=== PATIENT | male | born 1950 | race Caucasian/White ===

== ENCOUNTER 2017-07-03 10:36 | Day surgery (SDC) | payer MEDICARE, OTHER ==
[2017-06-30 14:27] VITALS: BMI 33.0
[~2017-07-03 10:36] MED LIST: LACTATED RINGERS 1,000 ML IV SCH; LIDOCAINE 1% 20 ML VIAL (10MG/ML) FOR IV START INTRADERMA PRN
[2017-07-03 10:53] VITALS: RESP 18; TEMP 97.9
[2017-07-03] MEDS ORDERED: PROPOFOL 10 MG/ML 20 ML VIAL IV ONE (11:48)
--- NOTE | 2017-07-03 12:09 | P.PCN ---
Date of Procedure: 07/03/17 Preoperative Diagnosis: Postoperative Diagnosis: Procedure(s) Performed: Procedure: Total colonoscopy. Preoperative diagnosis: Screening for neoplasia. Postoperative diagnosis: Mild sigmoid diverticulosis with no evidence of acute diverticulitis, strictures, polyps or cancer. Preparation: HalfLytely prep. Sedation: Was provided by anesthesia. Brief clinical history: The patient is a 67-year-old male who is referred for this evaluation for screening for neoplasia. He had a prior exam more than 10 years ago. The patient has no abdominal complaints, bleeding or anemia. Procedure: With the patient on his left lateral decubitus position and after informed consent and adequate sedation, the perianal area was inspected and it did not show any fissures or fistulas. There were no masses felt on digital rectal examination. The Olympus CFQ 160L video colonoscope was then inserted in the rectum in the usual fashion and advanced to the cecum. There was very few small diverticular orifices seen scattered in the distal sigmoid with no evidence of acute diverticulitis or strictures. No polyps or tumors were seen or any other pathology. I retroflexed the endoscope in the rectum before the endoscope was withdrawn. The patient tolerated the procedure well. Plan: The patient was reassured. Discussed dietary measures. He will follow up with you as planned and I recommended repeat exam in 10 years. Implants: Indications for Procedure: Operative Findings: Description of Procedure:
[2017-07-03 12:40] VITALS: BP 142/83; PULSE 69
== END 2017-07-03 12:56 | disposition home or self-care (01) ==
LOC: ORWHC2ENDO 10:36
DX: Z12.11 Encounter for screening for malignant neoplasm of colon (principal); K57.30 Diverticulosis of large intestine without perforation or abscess without bleeding; I10 Essential (primary) hypertension; Z79.82 Long term (current) use of aspirin; Z79.1 Long term (current) use of non-steroidal anti-inflammatories (NSAID); Z79.899 Other long term (current) drug therapy
CPT/HCPCS: J2704; G0121

== ENCOUNTER → 2018-05-01 | Outpatient (CLI) | payer MEDICARE, OTHER | END | disposition home or self-care (01) | LOC: LABPAT 12:42 | PROVIDERS: ATTEND Orthopaedic Surgery | DX: Z01.812 Encounter for preprocedural laboratory examination (principal); M16.12 Unilateral primary osteoarthritis, left hip | CPT/HCPCS: 87070 ==

== ENCOUNTER 2018-05-11 05:43 | Inpatient (IN) | payer MEDICARE, OTHER ==
[2018-04-29 11:11] VITALS: BMI 33.0
--- NOTE | 2018-05-10 12:25 | HP ---
HISTORY AND PHYSICAL REASON FOR ADMISSION: Surgery scheduled for 05/11/2018 HISTORY OF PRESENT ILLNESS: Nate Kaiser is a 67-year-old patient seen with symptomatic left hip osteoarthritis. Treatment options were discussed. He elected to proceed with left total hip arthroplasty. Consent was obtained, clearance was provided by Dr. Manan Alcala. PAST MEDICAL HISTORY: Hypertension. PAST SURGICAL HISTORY: Left knee arthroscopy. MEDICATIONS: Tenormin, Baclofen, Plendil. ALLERGIES: None reported. SOCIAL HISTORY: The patient denies current tobacco use. PHYSICAL EXAMINATION: Evaluation of the left hip, there is a generalized diffuse tenderness. There is very limited range of motion of the hips with severe pain. There is a positive hip impingement sign. Straight leg raise is negative. His distal neurovascular exam is intact. RADIOGRAPHS: Radiographs of the left hip reveal severe osteoarthritic changes. IMPRESSION: 1. Left hip osteoarthritis. 2. Hypertension. PLAN: Direct anterior approach left total hip arthroplasty. Surgery scheduled for 05/11/2018. MMODL / IJN: [id number] /
[~2018-05-11 05:43] MED LIST changes: +ACETAMINOPHEN TAB 500 MG TAB PO ONE; +DEXAMETHASONE SOD PHOSPHATE 10 MG/ML 1 ML VIAL IV ONE; -LACTATED RINGERS 1,000 ML IV SCH; -LIDOCAINE 1% 20 ML VIAL (10MG/ML) FOR IV START INTRADERMA PRN; +MELOXICAM 7.5 MG TAB PO ONE; +MIDAZOLAM 2 MG/2 ML VIAL IV PRN; +ONDANSETRON 4 MG/2 ML VIAL IVP ONE; +TRANEXAMIC ACID 1,000 MG in SODIUM CHLORIDE 0.9% 50 ML IVPB ONE; +ceFAZolin IN SWFI 2 GM/20 ML SYRINGE IVP ONE; +fentaNYL (PF) 50 MCG/ML 2 ML AMP IV PRN
[2018-05-11] MEDS ORDERED: LIDOCAINE 1% 20 ML VIAL (10MG/ML) FOR IV START INTRADERMA ONE (06:49)
[2018-05-11] MEDS: LACTATED RINGERS 1,000 ML IV SCH ×3 (06:53→20:42)
[2018-05-11] MEDS ORDERED: TRANEXAMIC ACID 1,000 MG/10 ML VIAL ONE (06:58)
[2018-05-11] MEDS ORDERED: MIDAZOLAM 2 MG/2 ML VIAL ONE (06:58)
[2018-05-11] MEDS ORDERED: ePHEDrine SULFATE/0.9% NACL/PF 50 MG/5 ML SYRINGE IV ONE (06:58)
[2018-05-11] MEDS ORDERED: fentaNYL (PF) 50 MCG/ML 2 ML AMP ONE (06:58)
[2018-05-11] MEDS ORDERED: SODIUM CHLORIDE 0.9% 100 ML BAG ONE (06:58)
[2018-05-11] MEDS ORDERED: ROPIVACAINE 246.25 MG, EPINEPHrine 0.5 MG, KETOROLAC 30 MG, cloNIDine HCL/PF 80 MCG, WA... MISCELLANE ONE ×5 (06:58)
[2018-05-11] MEDS ORDERED: PROPOFOL 10 MG/ML 20 ML VIAL IV ONE (06:58)
[2018-05-11] MEDS ORDERED: ceFAZolin 3,000 MG in SODIUM CHLORIDE 0.9% IRRIGATIO 3,000 ML IRRIGATION ONE (07:37)
--- NOTE | 2018-05-11 09:08 | P.OP ---
Date of Procedure: 05/11/18 Preoperative Diagnosis: Left hip osteoarthritis Postoperative Diagnosis: Left hip osteoarthritis Procedure(s) Performed: Direct anterior left total hip arthroplasty Implants: 1. Depuy Corail KA size 16 standard collar press-fit femoral stem 2. Depuy pinnacle 56 mm press-fit acetabular shell 3. Depuy all pinnacle polyethylene acetabular liner +4 neutral 36 mm ID 56 mm OD 4. Biolox delta ceramic femoral head +1.5 36 mm Anesthesia: local, spinal Surgeon: Juan Carlos Brownlee Data Integration Analyst #1: Shakir Novak Estimated Blood Loss (ml): 600 Pathology: other (Octavia head) Condition: stable Disposition: PACU Indications for Procedure: 68-year-old patient seen with symptomatic left hip osteoarthritis. After having treatment options discussed, he elected to proceed with total hip arthroplasty. Operative Findings: see description of procedure Description of Procedure: The patient was taken to the operative suite. Patient underwent a spinal anesthetic by the department of anesthesia. Patient was then transferred to the [facility] table. Patient was given preoperative IV antibiotics and TXA. Both lower extremities were placed in standard leg spars. The hip was then prepped and draped in the normal sterile orthopedic fashion. A standard anterior incision was made beginning 3 cm lateral and 1 cm distal to the ASIS extending 10 cm. Dissection was then carried down through the subcutaneous soft tissues down to the fascia overlying the tensor fascia kaleb. An incision was now made through the fascia. Careful dissection was taken down exposing the tensor fascia kaleb muscle. A Cobra retractor was now placed along the medial femoral neck and a second one along the lateral femoral neck. The venous circumflex vessels were now identified, cauterized and clipped. We identified the anterior hip capsule. An incision was made through the hip capsule along the lateral border. Tag sutures were then placed along the anterior capsule and lateral capsule. We then performed a capsulotomy. Retractors were now placed around the femoral neck itself. A Cobra retractor was now placed along the anterior acetabulum. Good exposure was now noted of the femoral head/neck complex. Residual labrum was debrided out. We placed the extremity into 3 turns of fine traction. We were then able to introduce a skid in between the femoral head and acetabulum. A placed a awl into the femoral head. We took 2 turns of traction off the extremity. Rotation was now released. The femoral head was then dislocated without difficulty. Additional releasing was performed of the capsule. The head was then reduced. All traction was released. A femoral neck cut was now made with a sagittal saw. It was completed with an osteotome at the lateral neck area. The femoral head was now removed without difficulty. The extremity was now rotated to 60 of external rotation. It was locked in position. Residual labrum was now debrided out. Serial reaming was performed of the acetabulum. Once we reached the appropriate size and a trial was position and fit nicely. The appropriate size was now chosen opened and made available. The wound was irrigated with pulse lavage mechanical irrigation. The acetabular component was introduced into the acetabulum without difficulty. The C-arm/fluoroscopy was now brought into the operative field. We made sure we had a true AP pelvic view. We now under direct C-arm/fluoroscopy introduced into the acetabular component with appropriate version and inclination. It was well seated and stable. The C-arm was pulled back. An appropriate liner was introduced and clicked into position. It was felt to be stable. At this point retractors were removed. The extremity was now placed into 120 external rotation with no traction. The leg was now dropped to the ground and adducted. Appropriate retractors were now positioned along the proximal femur. We also placed our femoral look into position. Additional capsular releasing was performed to gain access to the proximal femur. We now used a box osteotome. A canal finder was now utilized. Serial broaching was now performed until we reached the appropriate size with good overall rotational stability. Appropriate calcar planing was performed. A trial head/neck was placed into position. The hip was now reduced. The C-arm /fluoroscopy was brought back into the operative field. A spot film was obtained of the nonoperative hip. A spot film was obtained of the trial components. Overlays were performed, we noted good overall alignment and positioning for determining leg length. The C-arm/fluoroscopy was pulled back. Retractors were repositioned and the hip was dislocated. The leg was again taken down to the ground and adducted. Appropriate retractors were repositioned as well as the femoral hook. All trial components were removed. The wound was irrigated with pulse lavage mechanical irrigation. The femoral implant was opened along with the femoral head. The femoral implant was introduced with good purchase and fixation noted. The femoral head was introduced with good positioning and fixation noted. Retractors were now removed. The hip was now reduced. There appeared be good positioning of the hip. As was confirmed under fluoroscopy and spot films were obtained to document that. Bipolar cautery had been utilized intermittently through the procedure for hemostasis. A second gram of TXA was given. The wound was irrigated copiously with pulse lavage mechanical irrigation. The deep soft tissues and superficial soft tissues were infiltrated with local analgesic. The fascia was repaired with Vicryl suture. The subcutaneous soft tissues were repaired in layers with Vicryl suture. The skin was approximated with pernio/ Dermabond. Sterile dressings were applied. Patient was then awakened, transferred to a bed and taken to recovery in stable condition. Byron MAO assisted with the procedure.
[2018-05-11] MEDS ORDERED: hydrOXYzine PAMOATE 25 MG CAP PO PRN (09:16)
[2018-05-11] MEDS ORDERED: HYDROcodone/APAP 7.5-325MG 1 EACH TAB PO PRN (09:16)
[2018-05-11] MEDS ORDERED: HYDROmorphone 0.5 MG/0.5 ML SYRINGE IVP PRN ×3 (09:16)
[2018-05-11] MEDS ORDERED: ONDANSETRON 4 MG/2 ML VIAL IVP PRN (09:16)
[2018-05-11] MEDS ORDERED: NALOXONE 0.4 MG/ML 1 ML VIAL IV PRN (09:16)
[2018-05-11] MEDS ORDERED: LACTATED RINGERS 1,000 ML IV ONE ×3 (09:25→10:06)
[2018-05-11] MEDS ORDERED: BACLOFEN 10 MG TAB PO PRN (12:32)
[2018-05-11] MEDS: traMADol 50 MG TAB PO SCH ×3 (12:36→22:38)
--- NOTE | 2018-05-11 12:58 | FL ---
Fluoroscopy HISTORY: Hip replacement 35 seconds fluoroscopy time supplied to the referring clinician. 1 intraoperative C-arm images docum ent the procedure. See dictated report from orthopedic surgery.
[2018-05-11] MEDS: DORZOLAMIDE HCL 2% DROPS 10 ML BTL BOTH EYES SCH ×2 (13:06→20:42)
--- NOTE | 2018-05-11 14:27 | P.CONS ---
History of Present Illness - Reason for Consult Consult date: 05/11/18 medical management - History of Present Illness This is a 68-year-old male, one of Dr. Alcala's patients, with a past medical history of hypertension, glaucoma, right knee arthroscopy in 2014, and osteoarthritis. Patient has been having significant left hip pain for over a year, he failed medical management. Today he underwent left total hip arthroplasty with Dr. Brownlee. Postoperatively he is doing well. Reports pain is well controlled, vital signs are stable. He denies any chest pain, palpitations, shortness breath, nausea, or vomiting. Review of Systems Constitutional: Denies chills, Denies fever, Denies lethargy, Denies malaise Eyes: denies blurred vision, denies discharge, denies dry eye, denies pain Ears: deny: decreased hearing, earache, tinnitus Ears, nose, mouth and throat: Denies dysphagia, Denies epistaxis, Denies headache, Denies nasal congestion, Denies nasal discharge, Denies sinus pain, Denies sinus pressure, Denies sore throat Cardiovascular: Denies chest pain, Denies dyspnea on exertion, Denies edema, Denies orthopnea, Denies shortness of breath, Denies syncope Respiratory: Denies congestion, Denies cough, Denies dyspnea, Denies hemoptysis , Denies pain, Denies wheezing Gastrointestinal: Denies abdominal pain, Denies constipation, Denies heartburn, Denies nausea, Denies vomiting Genitourinary: Denies flank pain, Denies hematuria, Denies kidney stones, Denies urinary frequency, Denies urinary hesitancy, Denies urinary retention Musculoskeletal: Reports low back pain, Denies atrophy, Denies frequent falls, Denies gait dysfunction, Denies muscle weakness, Denies neck pain, Denies neck stiffness Integumentary: Denies acne, Denies lesions, Denies pruritus, Denies rash, Denies wounds Neurological: Denies aphasia, Denies numbness, Denies paralysis, Denies paresthesias, Denies seizures, Denies syncope, Denies tingling, Denies visual changes Psychiatric: Denies anxiety, Denies confusion, Denies insomnia, Denies irritability, Denies mood swings, Denies paranoia, Denies suicidal ideation Endocrine: Denies fatigue, Denies high blood sugars, Denies palpitations, Denies weight change Hematologic/Lymphatic: Denies lymphadenopathy Past Medical History Past Medical History: Eye Disorder, Hypertension, Osteoarthritis (OA) Additional Past Medical History / Comment(s): GLAUCOMA, ARTHRITIS PAIN LOWER BACK History of Any Multi-Drug Resistant Organisms: None Reported Past Surgical History: Joint Replacement, Orthopedic Surgery Additional Past Surgical History / Comment(s): TRHA, ARTHROSCOPIC- left knee, left hip scope Past Anesthesia/Blood Transfusion Reactions: No Reported Reaction Past Psychological History: No Psychological Hx Reported Smoking Status: Never smoker Past Alcohol Use History: None Reported Additional Past Alcohol Use History / Comment(s): HX OF CHEWING TOBACCO- QUIT 2 YEARS AGO. Past Drug Use History: None Reported - Past Family History Mother Family Medical History: Cancer Father Family Medical History: Cancer Medications and Allergies Home Medications Medication Instructions Recorded Confirmed Type Aspirin 81 mg PO HS 04/29/14 05/11/18 History Atenolol [Tenormin] 25 mg PO HS 04/29/14 05/11/18 History Felodipine ER [Plendil] 5 mg PO HS 04/29/14 05/11/18 History Meloxicam [Mobic] 15 mg PO HS 04/29/14 05/11/18 History Ascorbic Acid [Vitamin C] 1,000 mg PO DAILY 06/30/17 05/11/18 History Baclofen 10 mg PO HS PRN 04/29/18 05/11/18 History Bimatoprost [Lumigan .01% Ophth 1 drop BOTH EYES HS 04/29/18 05/11/18 History Soln] Dorzolamide 2% [Trusopt 2%] 1 drops BOTH EYES BID 04/29/18 05/11/18 History Allergies Allergy/AdvReac Type Severity Reaction Status Date / Time No Known Allergies Allergy Verified 05/11/18 12:32 Physical Exam Vitals: Vital Signs Temp Pulse Pulse Pulse Resp BP BP 05/11/18 12:26 78 16 122/70 05/11/18 12:10 75 118/82 05/11/18 11:55 69 120/78 05/11/18 11:40 69 116/76 05/11/18 11:25 58 L 16 122/80 05/11/18 11:12 69 16 114/66 05/11/18 11:00 66 14 115/71 05/11/18 10:45 65 16 117/80 05/11/18 10:21 97.5 F L 65 16 111/73 05/11/18 10:04 62 16 128/69 05/11/18 09:50 68 16 113/70 05/11/18 09:35 67 16 112/63 05/11/18 09:24 96.8 F L 67 16 114/61 05/11/18 06:32 97.5 F L 56 L 16 120/75 Pulse Ox 05/11/18 12:26 98 05/11/18 12:10 100 05/11/18 11:55 99 05/11/18 11:40 100 05/11/18 11:25 98 05/11/18 11:12 100 05/11/18 11:00 99 05/11/18 10:45 100 05/11/18 10:21 100 05/11/18 10:04 99 05/11/18 09:50 97 05/11/18 09:35 98 05/11/18 09:24 94 L 05/11/18 06:32 98 Intake and Output 05/10/18 05/11/18 05/11/18 22:59 06:59 14:59 Intake Total 1000 51 Output Total 600 Balance 1000 -549 Intake: IV 1000 51 Output: Estimated Blood Loss 600 Other: Weight 104.326 kg - Constitutional General appearance: average body habitus, cooperative, no acute distress - EENT Eyes: EOMI, PERRLA, normal appearance - Neck Neck: no lymphadenopathy, normal ROM, no rigidity, no thyromegaly - Respiratory Respiratory: bilateral: CTA, negative: diminished, dullness, rales, rhonchi, wheezing - Cardiovascular Rhythm: regular Heart sounds: normal: S1, S2 Abnormal Heart Sounds: no systolic murmur, no diastolic murmur - Gastrointestinal General gastrointestinal: no decreased bowel sounds, no hepatomegaly, normal bowel sounds, no organomegaly, soft, no tenderness - Integumentary Integumentary: no cellulitis, no decreased turgor, normal, no rash, no ulcer - Neurologic Neurologic: CNII-XII intact - Musculoskeletal Musculoskeletal: no generalized weakness, strength equal bilaterally - Psychiatric Psychiatric: A&O x's 3, appropriate affect Assessment and Plan Plan: 1. Left hip osteoarthritis status post total hip arthroplasty postop day 0. Will continue with pain management as ordered by orthopedics, incentive spirometer, Lovenox 40 mg subcu daily. 2. Hypertension. Continue Norvasc 5 mg daily and atenolol 25 mg daily 3. Glaucoma. Continue latanoprost and dorzolamide 4. DVT prophylaxis. Continue Lovenox 40 mg subcu daily. 5. DVT prophylaxis. Continue Pepcid 20 mg daily. The above impression and plan of care have been discussed and directed by signing physician. Rosa Elena Garner nurse practitioner acting as scribe for signing physician.
[2018-05-11] MEDS: ceFAZolin IN SWFI 2 GM/20 ML SYRINGE IVP SCH (15:04)
[2018-05-11] MEDS: HYDROcodone/APAP 7.5-325MG 1 EACH TAB PO PRN ×2 (15:48→16:40)
[2018-05-11] MEDS ORDERED: ATENOLOL 25 MG TAB PO SCH (21:00)
[2018-05-11] MEDS ORDERED: LATANOPROST 0.005% OPHTH DROPS 2.5 ML BTL BOTH EYES SCH (21:00)
[2018-05-11] MEDS ORDERED: ASPIRIN 81 MG PO SCH (21:00)
[2018-05-11] MEDS ORDERED: SENNOSIDES-DOCUSATE SODIUM 1 EACH TAB PO SCH (21:00)
[2018-05-11] MEDS ORDERED: amLODIPine 5 MG TAB PO SCH (21:00)
[2018-05-12] MEDS: ceFAZolin IN SWFI 2 GM/20 ML SYRINGE IVP SCH (00:48)
[2018-05-12 07:25] VITALS: BP 137/80; PULSE 72; RESP 18; TEMP 98.9
[2018-05-12] MEDS: LACTATED RINGERS 1,000 ML IV SCH ×2 (07:26)
[2018-05-12 07:32] LABS: Basophils % (A) 0 %; Eosinophils % (A) 0 %; HCT 34.2 % (39.0-53.0); HGB 11.5 gm/dL (13.0-17.5); Lymphocytes # (A) 1.7 k/uL (1.0-4.8); Lymphocytes % (A) 16 %; MCH 28.6 pg (25.0-35.0); MCHC 33.7 g/dL (31.0-37.0); Monocytes # (A) 0.9 k/uL (0-1.0); Monocytes % (A) 9 %; Neutrophils # (A) 7.4 k/uL (1.3-7.7); Neutrophils % (A) 73 %; Platelet Count 169 k/uL (150-450); RBC 4.02 m/uL (4.30-5.90); RDW 13.2 % (11.5-15.5); WBC 10.1 k/uL (3.8-10.6)
[2018-05-12] MEDS: DORZOLAMIDE HCL 2% DROPS 10 ML BTL BOTH EYES SCH (08:00)
[2018-05-12] MEDS: traMADol 50 MG TAB PO SCH ×2 (08:03→12:29)
[2018-05-12] MEDS ORDERED: ENOXAPARIN 40 MG/0.4 ML SYRINGE SQ SCH (09:00)
[2018-05-12] MEDS ORDERED: MELOXICAM 7.5 MG TAB PO SCH (09:00)
[2018-05-12] MEDS ORDERED: FAMOTIDINE 20 MG TAB PO SCH (09:00)
--- NOTE | 2018-05-12 10:56 | P.PN ---
Subjective Progress Note Date: 05/12/18 Principal diagnosis: Status post left total hip arthroplasty Patient doing well at this time, acute complaints. He is ambulating with therapy. He is urinating on his own. He denies any headaches, lightheadedness , chest pain or shortness of breath. Objective - Vital Signs Vital signs: Vital Signs Temp 98.9 F 05/12/18 07:25 Pulse 72 05/12/18 07:25 Resp 18 05/12/18 07:25 BP 137/80 05/12/18 07:25 Pulse Ox 98 05/12/18 07:25 Intake & Output 05/11/18 05/12/18 05/12/18 18:59 06:59 18:59 Intake Total 451 Output Total 950 Balance -499 Weight 104.326 kg Intake: IV 51 Intake, IV Titration 400 Amount Lactated Ringers 1,000 ml 400 @ 100 mls/hr IV .Q10H TYRELL Rx#:[id number] Output: Urine 350 Estimated Blood Loss 600 Other: Voiding Method Toilet Toilet # Voids 1 - Exam Left lower extremity: Incision is clean, dry, and intact. The prineo tape is in good condition. There is minimal soft tissue swelling and ecchymosis surrounding the medial and lateral aspects of the incision. Calf is soft, no tenderness with palpation. Plantar flexion, dorsiflexion, EHL, FHL are intact. Sensory exam to light touch throughout the extremity is intact, dorsal pedis pulses 2+. - Labs CBC & Chem 7: 05/12/18 06:43 Labs: Abnormal Lab Results - Last 24 Hours (Table) 05/12/18 Range/Units 06:43 RBC 4.02 L (4.30-5.90) m/uL Hgb 11.5 L (13.0-17.5) gm/dL Hct 34.2 L (39.0-53.0) % Assessment and Plan Plan: Assessment: Postop day #1 status post left total hip arthroplasty Plan: Pain control, we'll discharge home on oral medication GI and DVT prophylaxis, aspirin 325 mg twice a day for a month Wound care instructions discussed Home physical therapy and nursing after discharge Medical recommendations Discharge planning: Patient will be discharged home today Time with Patient: Less than 30
--- NOTE | 2018-05-12 11:00 | P.DS ---
Providers Date of admission: 05/11/18 05:43 Expected date of discharge: 05/12/18 Attending physician: Juan Carlos Brownlee Consults: 05/11/18 09:16 Consult Physician Routine Consulting Provider: Jose Alcala Consult Reason/Comments: Medical management Do you want consulting provider notified?: Yes 05/11/18 11:01 Consult Physician Routine Consulting Provider: Florinda Go Consult Reason/Comments: medical management Do you want consulting provider notified?: Yes Primary care physician: Jose Alcala Hospital Course: Date of admission: 05/11/2018 Date of discharge: 05/12/2018 Admission diagnosis: Status post left total hip arthroplasty Discharge diagnosis: Same Attending physician: Dr. Martin Surgical procedures: Left total hip arthroplasty Brief history: Patient is a 68-year-old male with a history of primary left hip osteoarthritis. At this point patient has failed conservative treatment measures and has opted to proceed with a elective left total hip arthroplasty. Hospital course: Details of patient's surgery can be found in operative report. Patient tolerated the procedure well and was subsequently transported to orthopedic floor. Patient's orthopeidc and medical care was provided daily. Patient had daily laboratory tests performed for evaluation of overall blood counts. Patient had daily physical therapy to include strengthening range of motion as well as education with walker ambulation. Patient was treated with Lovenox for their postoperative DVT prophylaxis during their inpatient stay. Patient was noted to have a relatively uneventful postoperative course. Patient reported satisfactory pain control with oral pain medications by postoperative day 0. Patient showed satisfactory progress with physical therapy. Patient moved steadily through the program and had no difficulty meeting the goals by postoperative day 1. Given patient's otherwise satisfactory course and having met physical therapy goals, plan is to discharge patient home on postoperative day 1. Discharge condition/disposition: Patient will be discharged home in stable condition. Discharge medications: Instructions are given on resumption of patient's normal daily medications per primary care recommendation, in addition patient will be prescribed Alfred 7.5 mg/25 mg, tramadol 50 mg, Colace milligrams, aspirin 325 mg. Discharge instructions: 1. Wound care and infection precautions, keep incision dry and covered while showering, no lotions, creams, moisturizers. No soaking, tubs, pools, hottubs. Do not scrub over the incision. 2. Weight-bear as tolerated with walker / cane until follow-up. 3. Ice and elevate when necessary. Do not exceed 20 minutes per hour with ice pack. 4. Utilize compression sleeve until seen at first follow up appointment. 5. Visiting nursing care. 6. Home physical therapy 7. Pain meds and anticoagulants per prescription. 8. Pain medication has potential to cause constipation. Increase oral fluid and fiber intake. Contact primary care provider if you have not had a bowel movement within 48 hours after discharge 9. No anti-inflammatory medication until discussed at first post operative visit, this including Motrin, Aleve, Mobic, Diclofenac. 10. Follow up in office at 2 weeks postop with Byron Novak PA-C 11. Follow up with your primary care doctor 7-10 days after discharge. 12. Contact [facility] with any questions, . Procedures: Left total hip arthroplasty Patient Condition at Discharge: Good Plan - Discharge Summary Discharge Rx Participant: Yes New Discharge Prescriptions: New Multivitamins, Thera [Multivitamin (formulary)] 1 each PO DAILY@1200 tab Sennosides-Docusate Sodium [Senokot-S] 2 each PO HS #60 tab Aspirin 325 mg PO BID #60 tab Docusate [Colace] 100 mg PO DAILY #30 capsule HYDROcodone/APAP 7.5-325MG [Alfred 7.5] 1 - 2 each PO Q6HR PRN #56 tab PRN Reason: Pain traMADol HCl [Ultram] 50 mg PO Q6H PRN #28 tab PRN Reason: Pain Continue Felodipine ER [Plendil] 5 mg PO HS Atenolol [Tenormin] 25 mg PO HS Ascorbic Acid [Vitamin C] 1,000 mg PO DAILY Baclofen 10 mg PO HS PRN PRN Reason: Pain Bimatoprost [Lumigan .01% Ophth Soln] 1 drop BOTH EYES HS Dorzolamide 2% [Trusopt 2%] 1 drops BOTH EYES BID Discontinued Aspirin 81 mg PO HS Discharge Medication List Atenolol [Tenormin] 25 mg PO HS 04/29/14 [History] Felodipine ER [Plendil] 5 mg PO HS 04/29/14 [History] Ascorbic Acid [Vitamin C] 1,000 mg PO DAILY 06/30/17 [History] Baclofen 10 mg PO HS PRN 04/29/18 [History] Bimatoprost [Lumigan .01% Ophth Soln] 1 drop BOTH EYES HS 04/29/18 [History] Dorzolamide 2% [Trusopt 2%] 1 drops BOTH EYES BID 04/29/18 [History] Aspirin 325 mg PO BID #60 tab 05/12/18 [Rx] Docusate [Colace] 100 mg PO DAILY #30 capsule 05/12/18 [Rx] HYDROcodone/APAP 7.5-325MG [Alfred 7.5] 1 - 2 each PO Q6HR PRN #56 tab 05/12/18 [ Rx] Multivitamins, Thera [Multivitamin (formulary)] 1 each PO DAILY@1200 tab [Rx] Sennosides-Docusate Sodium [Senokot-S] 2 each PO HS #60 tab 05/12/18 [Rx] traMADol HCl [Ultram] 50 mg PO Q6H PRN #28 tab 05/12/18 [Rx] Follow up Appointment(s)/Referral(s): [facility], [NON-STAFF] - Shakir Novak PAC [PHYSICIAN PATIENT RELATIONS DIRECTOR] - 05/27/18 1:50 pm Jose Alcala MD [Primary Care Provider] - 1 Week Activity/Diet/Wound Care/Special Instructions: Orthopedic Discharge Instructions: 1. Wound care and infection precautions, keep incision dry and covered while showering, no lotions, creams, moisturizers. No soaking, pools, hot tubs. Do not scrub over incision. 2. Weight-bear as tolerated with walker / cane until follow-up. 3. Ice and elevate when necessary. Do not exceed 20 minutes per hour with ice pack. 4. Utilize compression sleeve until seen at first follow up appointment. 5. Visiting nursing care. 6. Home physical therapy. 7. Pain meds and anticoagulants per prescription. 8. Pain medication has potential to cause constipation. Increase oral fluid and fiber intake. Contact primary care provider if you have not had a bowel movement within 48 hours after discharge. 9. No anti-inflammatory medication until discussed at first post operative visit, this including Motrin, Aleve, Mobic, Diclofenac. 10. Follow up in office at 2 weeks postop with Byron Novak PA-C 11. Follow up with your primary care doctor 7-10 days after discharge. 12. Contact [facility] with any questions, [phone]. 13. [facility] - [phone] - will deliver to bedside before discharge. Discharge Disposition: HOME WITH HOME HEALTH SERVICES
[2018-05-12] MEDS ORDERED: MULTIVITAMINS, THERA 1 EACH TAB PO SCH (12:00)
--- NOTE | 2018-05-12 13:24 | P.PN ---
Subjective This is a 68-year-old male, one of Dr. Alcala's patients, with a past medical history of hypertension, glaucoma, right knee arthroscopy in 2014, and osteoarthritis. Patient has been having significant left hip pain for over a year, he failed medical management. Today he underwent left total hip arthroplasty with Dr. Brownlee. Postoperatively he is doing well. Reports pain is well controlled, vital signs are stable. He denies any chest pain, palpitations, shortness breath, nausea, or vomiting. 05/12: Patient evaluated today, he's noted to be sitting up in the beside chair. He is doing well, states pain is controlled. He is encouraged to use the incentive spirometer. He is actually cleared by orthopedics and waiting to be discharged. Discussed opioid safety and proper disposal. He will continue on ASA for anticoagulation. Hemoglobin a little low at 11.5, recommend to start an over the counter multivitamin with iron. He denies any dizziness, chest pain, shortness of breath, or calf pain. Objective - Vital Signs Vital signs: Vital Signs Temp 98.9 F 05/12/18 07:25 Pulse 72 05/12/18 07:25 Resp 18 05/12/18 07:25 BP 137/80 05/12/18 07:25 Pulse Ox 98 05/12/18 07:25 Intake & Output 05/11/18 05/12/18 05/12/18 18:59 06:59 18:59 Intake Total 451 Output Total 950 Balance -499 Weight 104.326 kg Intake: IV 51 Intake, IV Titration 400 Amount Lactated Ringers 1,000 ml 400 @ 100 mls/hr IV .Q10H [facility] Rx#:[id number] Output: Urine 350 Estimated Blood Loss 600 Other: Voiding Method Toilet Toilet # Voids 1 - Exam - Constitutional General appearance: average body habitus, cooperative, no acute distress - EENT Eyes: EOMI, PERRLA, normal appearance - Neck Neck: no lymphadenopathy, normal ROM, no rigidity, no thyromegaly - Respiratory Respiratory: bilateral: CTA, negative: diminished, dullness, rales, rhonchi, wheezing - Cardiovascular Rhythm: regular Heart sounds: normal: S1, S2 Abnormal Heart Sounds: no systolic murmur, no diastolic murmur - Gastrointestinal General gastrointestinal: no decreased bowel sounds, no hepatomegaly, normal bowel sounds, no organomegaly, soft, no tenderness - Integumentary Integumentary: no cellulitis, no decreased turgor, normal, no rash, no ulcer - Neurologic Neurologic: CNII-XII intact - Musculoskeletal Musculoskeletal: no generalized weakness, strength equal bilaterally - Psychiatric Psychiatric: A&O x's 3, appropriate affect - Labs CBC & Chem 7: 05/12/18 06:43 Labs: Abnormal Lab Results - Last 24 Hours (Table) 05/12/18 Range/Units 06:43 RBC 4.02 L (4.30-5.90) m/uL Hgb 11.5 L (13.0-17.5) gm/dL Hct 34.2 L (39.0-53.0) % Assessment and Plan Plan: 1. Left hip osteoarthritis status post total hip arthroplasty postop day 1. Will continue with pain management as ordered by orthopedics, incentive spirometer, Lovenox 40 mg subcu daily will be switched to aspirin 325 mg twice a day for a month 2. Hypertension. Continue Norvasc 5 mg daily and atenolol 25 mg daily 3. Glaucoma. Continue latanoprost and dorzolamide 4. DVT prophylaxis. Continue Lovenox 40 mg subcu daily. 5. GI prophylaxis. Continue Pepcid 20 mg daily. The above impression and plan of care have been discussed and directed by signing physician. Rosa Elena Garner nurse practitioner acting as scribe for signing physician.
== END 2018-05-12 13:10 | disposition home health service (06) | DRG 470 ==
LOC: 2ORMAIN 05:43 → 3SUR 09:28
PROVIDERS: ADMIT Orthopaedic Surgery; ATTEND Orthopaedic Surgery
PROC: 0SRB04A Replacement of Left Hip Joint with Ceramic on Polyethylene Synthetic Substitute, Uncemented, Open Approach (ICD-10-PCS; principal; 2018-05-12)
DX: M16.12 Unilateral primary osteoarthritis, left hip (principal); I10 Essential (primary) hypertension; H40.9 Unspecified glaucoma; M47.9 Spondylosis, unspecified; M51.36 Other intervertebral disc degeneration, lumbar region; E66.3 Overweight; Z68.33 Body mass index [BMI] 33.0-33.9, adult; Z79.82 Long term (current) use of aspirin; Z79.899 Other long term (current) drug therapy; Z87.891 Personal history of nicotine dependence; Z86.19 Personal history of other infectious and parasitic diseases
CPT/HCPCS: 36415; 85025; 86850; 86900; 86901; 88300

== ENCOUNTER → 2020-12-22 | Outpatient (CLI) | payer MEDICARE, OTHER ==
[2020-12-22 13:14] LABS: Basophils # (A) 0.1 k/uL (0-0.2); Basophils % (A) 1 %; Eosinophils # (A) 0.2 k/uL (0-0.7); Eosinophils % (A) 2 %; HCT 42.7 % (39.0-53.0); HGB 14.3 gm/dL (13.0-17.5); Lymphocytes % (A) 30 %; MCH 28.9 pg (25.0-35.0); MCHC 33.6 g/dL (31.0-37.0); MCV 86.1 fL (80.0-100.0); Mean Platelet Volume 6.4; Monocytes # (A) 0.4 k/uL (0-1.0); Monocytes % (A) 6 %; Neutrophils % (A) 59 %; Platelet Count 191 k/uL (150-450); RBC 4.96 m/uL (4.30-5.90); RDW 13.1 % (11.5-15.5); WBC 6.7 k/uL (3.8-10.6)
[2020-12-22 13:20] LABS: Prothrombin Time 10.8 sec (9.0-12.0)
[2020-12-22 13:34] LABS: Potassium 5.1 mmol/L (3.5-5.1)
== END | disposition home or self-care (01) ==
LOC: LABPAT 12:49
PROVIDERS: ATTEND Orthopaedic Surgery
DX: M17.12 Unilateral primary osteoarthritis, left knee (principal); Z79.01 Long term (current) use of anticoagulants; Z22.322 Carrier or suspected carrier of Methicillin resistant Staphylococcus aureus
CPT/HCPCS: 36415; 80051; 85025; 85610; 93005

== ENCOUNTER → 2021-01-10 | Outpatient (CLI) | payer MEDICARE, OTHER | END | disposition home or self-care (01) | LOC: LABPAT 16:06 | PROVIDERS: ATTEND Orthopaedic Surgery | DX: Z01.812 Encounter for preprocedural laboratory examination (principal); M23.92 Unspecified internal derangement of left knee; Z22.322 Carrier or suspected carrier of Methicillin resistant Staphylococcus aureus | CPT/HCPCS: 87070 ==

== ENCOUNTER 2021-01-15 05:45 | Day surgery (SDC) | payer MEDICARE, OTHER ==
[2021-01-05 15:52] VITALS: BMI 33.0
--- NOTE | 2021-01-14 12:17 | HP ---
HISTORY AND PHYSICAL DATE OF SERVICE: Surgery is 01/15/2021 HISTORY OF PRESENT ILLNESS: Nate Kaiser is a 70-year-old gentleman seen with progressive left knee pain. We discussed options. He elected to proceed with left total knee arthroplasty. Consent was obtained. PAST MEDICAL HISTORY: Hypertension. SURGICAL HISTORY: Left knee arthroscopy. MEDICATIONS: Tenormin, baclofen, Mobic. ALLERGIES: None. SOCIAL HISTORY: Denies tobacco use. PHYSICAL EXAMINATION: Evaluation of the left knee: Range of motion is -4/5-120. Mild effusion. Tenderness along the medial joint line. Crepitus medial patellofemoral compartments with range of motion. Pain with patellofemoral compression. Ligaments stable. Hip rotation without pain. Distal neurovascular exam intact. RADIOGRAPHS: Left knee radiographs reveal severe osteoarthritic changes. IMPRESSION: 1. Left knee osteoarthritis. 2. Hypertension. PLAN: Left total knee arthroplasty. Surgery 01/15/2021. MMODL / IJN: [id number] /
[~2021-01-15 05:45] MED LIST changes: -ACETAMINOPHEN TAB 500 MG TAB PO ONE; +ACETAMINOPHEN TAB 500 MG TAB PO PRN; -DEXAMETHASONE SOD PHOSPHATE 10 MG/ML 1 ML VIAL IV ONE; +DEXAMETHASONE SOD PHOSPHATE 4 MG/ML 1 ML VIAL IV ONE; +HYDROmorphone 0.5 MG/0.5 ML SYRINGE IVP PRN; +LIDOCAINE 1% (10MG/ML) FOR IV START INTRADERMA PRN; -MELOXICAM 7.5 MG TAB PO ONE; +MELOXICAM 7.5 MG TAB PO PRN; +ROPIVACAINE/EPI/CLONIDINE/KET 50 ML SYRINGE MISCELLANE PRN; +TRANEXAMIC ACID 1,000 MG in SODIUM CHLORIDE 0.9% 100 ML IVPB PRN; -TRANEXAMIC ACID 1,000 MG in SODIUM CHLORIDE 0.9% 50 ML IVPB ONE; -ceFAZolin IN SWFI 2 GM/20 ML SYRINGE IVP ONE; -fentaNYL (PF) 50 MCG/ML 2 ML AMP IV PRN
[2021-01-15] MEDS ORDERED: MIDAZOLAM 2 MG/2 ML VIAL IV ONE (06:51)
[2021-01-15] MEDS ORDERED: fentaNYL (PF) 50 MCG/ML 2 ML AMP IV ONE (06:51)
[2021-01-15] MEDS: LACTATED RINGERS 1,000 ML IV SCH ×3 (07:06→22:35)
--- NOTE | 2021-01-15 07:07 | P.ANPRN ---
Procedure Note - Anesthesia - Nerve Block Performed Left Adductor Canal Infusion Time Out Performed: Yes (650) Date of Procedure: 01/15/21 Procedure Start Time: 06:51 Procedure Stop Time: 07:06 Indication: Acute Post-Operative Pain, Analgesia, Dx/Pain Location, Requested by Surgeon Specifically requested for management of pain by DrGregoria: Juan Carlos Brownlee Sedation Type: Sedate with meaningful contact maintained Preparation: Sterile Prep, Sterile Dressing Position: Supine Catheter: Indwelling Needle Types: On-Q Needle Gauge: 20 Ultrasound used to visualize needle placement: Yes Ultrasound used to observe medication spread: Yes Injectate: 0.5% Ropivacaine (see comment for volume) (20 mL) Blood Aspirated: No Pain Paresthesia on Injection Noted: No Resistance on Injection: Normal Image Stored and Saved: Yes Events: Uneventful and Well Tolerated
[2021-01-15] MEDS ORDERED: ROPIVACAINE 0.2%-NS ON-Q PUMP 1,090 MG, EMPTY PAIN BALL 1 EACH MISCELLANE PRN (07:08)
[2021-01-15] MEDS ORDERED: SODIUM CHLORIDE 0.9% 100 ML BAG ONE (07:25)
[2021-01-15] MEDS ORDERED: PROPOFOL 10 MG/ML 20 ML VIAL IV ONE (07:25)
[2021-01-15] MEDS ORDERED: TRANEXAMIC ACID 1,000 MG/10 ML VIAL ONE (07:25)
[2021-01-15] MEDS ORDERED: LIDOCAINE 1% INJ 10MG/ML (20 ML MDV) ONE (07:25)
[2021-01-15] MEDS ORDERED: MIDAZOLAM 2 MG/2 ML VIAL ONE (07:25)
[2021-01-15] MEDS ORDERED: LACTATED RINGERS 1,000 ML IV ONE (08:46)
[2021-01-15] MEDS ORDERED: ceFAZolin 1,000 MG in SODIUM CHLORIDE 0.9% 1,000 ML IRRIGATION ONE (08:46)
[2021-01-15] MEDS ORDERED: HYDROcodone/APAP 5-325MG 1 EACH TAB PO PRN (09:23)
[2021-01-15] MEDS ORDERED: HYDROmorphone 0.5 MG/0.5 ML SYRINGE IVP PRN ×2 (09:23)
[2021-01-15] MEDS ORDERED: ONDANSETRON 4 MG/2 ML VIAL IVP PRN (09:23)
[2021-01-15] MEDS ORDERED: NALOXONE 0.4 MG/ML 1 ML VIAL IV PRN (09:23)
[2021-01-15] MEDS ORDERED: HYDROmorphone 0.2 MG/1 ML SYRINGE IVP PRN (09:23)
--- NOTE | 2021-01-15 09:23 | P.OP ---
Date of Procedure: 01/15/21 Preoperative Diagnosis: Left knee osteoarthritis Postoperative Diagnosis: Left knee osteoarthritis Procedure(s) Performed: Left total knee arthroplasty Implants: 1. Depuy attune size 8 left cruciate retaining cemented femur 2. Depuy attune size 8 fixed bearing cemented tibial baseplate 3. Depuy attune size 8 fixed bearing cruciate retaining 8 mm polyethylene tibial insert 4. Depuy attune 41 mm all polyethylene cemented patella Anesthesia: regional (Adductor canal catheter), local, spinal Surgeon: Juan Carlos Brownlee Auth Specialist #1: Shakir Novak Estimated Blood Loss (ml): 45 Pathology: other (Bone) Condition: stable Disposition: PACU Indications for Procedure: 70-year-old patient seen with symptomatic left knee osteoarthritis. After having treatment options discussed, he elected to proceed with total knee arthro plasty Operative Findings: See description of procedure Description of Procedure: Patient was taken to the operative suite after having an adductor canal catheter placed by the department of anesthesia. Patient underwent a spinal anesthetic by the department of anesthesia. Patient was given preoperative IV intake antibiotics and TXA. A well-padded tourniquet was placed about the left lower extremity. The lower extremity was then prepped and draped in the normal sterile orthopedic fashion. The extremity was elevated, a tourniquet was insu fflated to 300. A standard anterior incision was made sharply through skin. Dissection was taken down through the subcutaneous soft tissues down to the extensor mechanism. A medial arthrotomy was performed, patella was everted and knee was flexed. There was advanced osteoarthritis noted. I introduced my distal intramedullary femoral drill. I then introduced the distal femoral cutting jig. Byron MAO secured the cutting jig with 2 pins. I held retractors in position while Byron MAO performed the distal femoral resection through the guide area we now removed her distal femoral cutting guide. We now placed our 4-in-1 femoral cutting block and positioned and it was secured with 2 pins by Byron MAO while I held the block in position. The distal femoral finishing was now completed. A proximal tibial cutting guide was positioned. I held the guide in the appropriate position with both hands well Byron MAO inserted stabilizing pins into the guide. Proximal tibial cut was made. We now placed a trial femoral component into position, along with an appropriate size tibial tray and insert. We now took the knee through range of motion and had full extension good flexion and good overall soft tissue balance noted. The patella was everted and stabilized with 2 towel clips held by Byron MAO while I performed a flush with patellar quad tendon utilizing a fresh sawblade. We templated the patella, appropriate drill holes were made. An appropriate trial patella was positioned, knee was taken through full range of motion with the patella tracking very nicely. The trial patella was removed. Drill holes were made through the femoral component. All trial components were removed after marking off the appropriate rotation of the tibia. Retractors were now positioned along the proximal tibia. An appropriate keel punch was made with the appropriate size tibial guide by myself on Byron MAO assisted by holding retractors. At this point appropriate size implants were chosen and opened. The joint was irrigated copiously with pulse lavage mechanical irrigation. The posterior capsule was infiltrated with local analgesic. The wound was irrigated with pulse lavage mechanical irrigation. We mixed antibiotic methylmethacrylate. We placed the knee into flexion. We placed multiple retractors assisted by Byron MAO to expose the proximal tibia. Once the methyl methacrylate was ready, the tibial component was cemented into place removing any excess methylmethacrylate form by both myself and Byron MAO. The femoral component was cemented into place removing the removing any excess methylmethacrylate performed by both myself and Byron MAO. We then inserted the appropriate size polyethylene tibial insert. We made sure that it was locked into position. We took the knee into full extension, and then back in a flexion making sure we had removed any excess methylmethacrylate. The patellar component was then cemented down and secured with clamp. Excess methylmethacrylate removed. We kept the knee in full extension, patellar clamp in position until methylmethacrylate had hardened. Once it had hardened the patellar clamp was removed. The knee was taken through full range of motion. The patella tracked nicely. There was good soft tissue balancing. The tourniquet was now released. Additional hemostasis was achieved via electrocautery. A second gram of TXA was given. The wound again was irrigated with pulse lavage mechanical irrigation. The superficial soft tissues were infiltrated local analgesic. The extensor mechanism was repaired with #2 Ethibond. We checked the repair with range of motion and it was stable. The subcutaneous soft tissues were repaired with Vicryl in layers. The skin was approximated with pernio/Dermabond. Sterile dressings were applied followed by loose web roll and Mihai bandage. The patient was transferred to a bed, and taken to recovery in stable and satisfactory condition. Byron MAO assisted with this complex procedure.
--- NOTE | 2021-01-15 10:21 | XR ---
EXAMINATION TYPE: XR knee limited LT DATE OF EXAM: 01/15/2021 CLINICAL HISTORY: Left knee pain and arthritis status post total knee replacement. TECHNIQUE: Portable AP and crosstable lateral views of the left knee are obtained immediately pos toperatively. COMPARISON: Outside left knee x-ray December 22, 2020. FINDINGS: Metallic hardware from total left knee arthroplasty is seen and appears satisfactory in al ignment and position. There is evidence of recent surgery with diffuse subcutaneous gas and soft tis alina swelling noted. IMPRESSION: METALLIC HARDWARE FROM TOTAL LEFT KNEE ARTHROPLASTY IS SATISFACTORY IN ALIGNMENT.
--- NOTE | 2021-01-15 17:14 | P.CONS ---
History of Present Illness - Reason for Consult Consult date: 01/15/21 - Chief Complaint Medical Management, bradycardia - History of Present Illness 70 years old male with patient of Dr. Alcala with past medical history of hypertension and hypertensive cardiovascular disease, anxiety and depression, glaucoma comes in for an elective left knee arthroplasty. Patient assessed postoperatively and is doing well. It is controlled on pain pump. Patient denies any chest pain, shortness of breath, fever, chills. Vitals evaluated patient and 97.6 pulse 51 blood pressure 118/73, oxygen saturation 94%. No labs are available to assess. Patient does not use a cane or walker. Patient is very active and easily more than 4 MET's. He denies any cardiovascular events in the past. Denies any history of pulmonary embolism. Patient denies any dizziness, nausea, change in bowel habits. Review of Systems Constitutional: Denies chills, Denies fever, Denies lethargy, Denies malaise, Denies poor appetite, Denies weakness, Denies weight loss Eyes: denies decreased vision, denies diplopia, denies discharge, denies pain Ears: deny: decreased hearing Ears, nose, mouth and throat: Denies dental pain, Denies headache, Denies nasal discharge, Denies nose pain Cardiovascular: Denies chest pain, Denies decreased exercise tolerance, Denies edema, Denies high blood pressure, Denies irregular heart beat, Denies palpitations, Denies paroxysmal nocturnal dyspnea, Denies rapid heart beat, Denies shortness of breath Respiratory: Denies congestion, Denies cough, Denies cough with sputum, Denies dyspnea, Denies home oxygen, Denies wheezing Gastrointestinal: Denies abdominal pain, Denies change in bowel habits, Denies coffee ground emesis, Denies early satiety, Denies excessive gas, Denies heartburn, Denies hematemesis, Denies hematochezia, Denies loss of appetite, Denies nausea, Denies vomiting Genitourinary: Denies dysuria, Denies flank pain, Denies kidney stones, Denies menorrhagia, Denies urgency, Denies urinary frequency Musculoskeletal: Endorses limitation of motion, Denies morning stiffness, Denies muscle cramps Integumentary: Denies rash, Denies wounds, Denies brittle nails, Denies change i n hair/nails, Denies darkening of skin Neurological: Denies balance difficulties, Denies change in speech, Denies double vision, Denies gait dysfunction, Denies loss of vision, Denies motor disturbance, Denies numbness, Denies paralysis, Denies paresthesias, Denies seizures Psychiatric: Denies anxiety, Denies depression Endocrine: Denies excessive sweating, Denies excessive thirst, Denies high blood sugars, Denies palpitations Hematologic/Lymphatic: Denies easy bruising, Denies lymphadenopathy Past Medical History Past Medical History: Eye Disorder, Hypertension, Osteoarthritis (OA), Sleep Apnea/CPAP/BIPAP Additional Past Medical History / Comment(s): GLAUCOMA, ARTHRITIS PAIN LOWER BACK, USES C PAP MACHINE, History of Any Multi-Drug Resistant Organisms: None Reported Past Surgical History: Joint Replacement, Orthopedic Surgery Additional Past Surgical History / Comment(s): ARTHROSCOPIC- left knee, TOTAL LEFT HIP SURGERY CATARACT BILATERAL WITH LENS IMPLANT , COLONOSCOPY Past Anesthesia/Blood Transfusion Reactions: No Reported Reaction Past Psychological History: Depression Smoking Status: Current some day smoker Past Alcohol Use History: None Reported Additional Past Alcohol Use History / Comment(s): HX OF CHEWING TOBACCO- AND SMOKED CIGARS QUIT IN 1999 Past Drug Use History: None Reported - Past Family History Mother Family Medical History: Cancer Father Family Medical History: Cancer Medications and Allergies Home Medications Medication Instructions Recorded Confirmed Type Atenolol [Tenormin] 25 mg PO HS 04/29/14 01/15/21 History Felodipine ER [Plendil] 5 mg PO HS 04/29/14 01/15/21 History Ascorbic Acid [Vitamin C] 1,000 mg PO DAILY 06/30/17 01/15/21 History Bimatoprost [Lumigan .01% Ophth 1 drop BOTH EYES BID 04/29/18 01/15/21 History Soln] Dorzolamide 2% [Trusopt 2%] 1 drops LEFT EYE BID 04/29/18 01/15/21 History Acetaminophen Tab [Tylenol Tab] 1,000 mg PO Q6HR PRN 01/05/21 01/15/21 History Aspirin 81 mg PO BID 01/05/21 01/15/21 History Sertraline [Zoloft] 50 mg PO DAILY 01/05/21 01/15/21 History Allergies Allergy/AdvReac Type Severity Reaction Status Date / Time No Known Allergies Allergy Verified 01/15/21 06:23 Physical Exam Vitals: Vital Signs Temp Pulse Pulse Resp BP Pulse Ox 01/15/21 12:00 54 L 108/61 97 01/15/21 11:45 52 L 120/80 94 L 01/15/21 11:30 50 L 124/79 96 01/15/21 11:15 51 L 118/73 97 01/15/21 11:00 97.6 F 49 L 16 105/52 96 01/15/21 10:45 50 L 16 110/65 96 01/15/21 10:31 46 L 16 114/63 96 01/15/21 10:17 48 L 16 105/63 100 01/15/21 10:00 55 L 16 104/62 98 01/15/21 09:53 97.0 F L 55 L 12 105/63 99 01/15/21 07:15 72 18 114/63 97 01/15/21 06:40 96.9 F L 53 L 18 129/68 96 Intake and Output 01/15/21 01/15/21 01/15/21 06:59 14:59 22:59 Intake Total 1721 Output Total 45 Balance 1676 Intake: IV 1401 Oral 320 Output: Estimated Blood Loss 45 Other: Weight 109.8 kg 109.8 kg - Constitutional General appearance: cooperative, no acute distress, obese - EENT Eyes: anicteric sclerae, PERRLA, normal appearance ENT: hearing grossly normal - Neck Neck: no lymphadenopathy, normal ROM, no other, no rigidity, no stridor, no thyromegaly - Respiratory Respiratory: bilateral: CTA, negative: diminished, dullness, rales, rhonchi - Cardiovascular Rhythm: regular Heart sounds: normal: S1, S2 Abnormal Heart Sounds: no systolic murmur, no diastolic murmur, no rub, no S3 Gallop, no S4 Gallop, no click, no other - Gastrointestinal General gastrointestinal: normal bowel sounds, soft - Integumentary Integumentary: no rash - Neurologic Neurologic: CNII-XII intact - Musculoskeletal Musculoskeletal: Left lower extremity dressed with no superficial bruising noted. Pedal pulses are palpable. Pain pump - Psychiatric Psychiatric: A&O x's 3, appropriate affect Assessment and Plan Plan: #1 postoperative day 0 left knee arthroplasty pain controlled per primary team. Continue incentive spirometry for pulmonary prophylaxis. Aspirin 81 mg twice a day for DVT prophylaxis #2. Sinus bradycardia hold atenolol continue Plendil 5 mg daily at bedtime. #3 hypertension. Continue felodipine 5 mg daily at bedtime hold atenolol. Hold blood pressure medication with systolic blood pressure less than 120 #4 DVT prophylaxis with aspirin 81 twice a day #5 Glaucoma continue dorzolamide 2% one drop left eye twice a day #6 DVT prophylaxis full code Thank you for the consult. I'll be happy to assist inpatient's medical need while patient in
[2021-01-15] MEDS: HYDROcodone/APAP 7.5-325MG 1 EACH TAB PO PRN (18:25)
[2021-01-15] MEDS ORDERED: SENNOSIDES-DOCUSATE SODIUM 1 EACH TAB PO SCH (21:00)
[2021-01-15] MEDS ORDERED: amLODIPine 5 MG TAB PO SCH (21:00)
[2021-01-15] MEDS: DORZOLAMIDE HCL 2% DROPS 10 ML BTL LEFT EYE SCH (21:16)
[2021-01-15] MEDS: LATANOPROST 0.005% OPHTH DROPS 2.5 ML BTL BOTH EYES SCH (21:16)
[2021-01-15] MEDS: ENOXAPARIN 30 MG/0.3 ML SYRINGE SQ SCH (21:17)
[2021-01-16] MEDS: HYDROcodone/APAP 7.5-325MG 1 EACH TAB PO PRN ×3 (01:39→13:36)
[2021-01-16] MEDS: LACTATED RINGERS 1,000 ML IV SCH ×2 (04:12→07:22)
--- NOTE | 2021-01-16 06:40 | P.PN ---
Progress Note - Text Progress Note Date: 01/16/21 Patient was seen at bedside at 545 AM. Patient is postop day 1 from left total knee replacement with adductor canal catheter placed for pain . Ropivacaine 0.2% infusion running at 8 ml per hour. VAS score is 8. Patient denies side effects. Lower extremity sensation and motor function is intact. Patient has ambulated. Dressing clean dry and intact over catheter site
[2021-01-16] MEDS: ENOXAPARIN 30 MG/0.3 ML SYRINGE SQ SCH (07:33)
[2021-01-16] MEDS: DORZOLAMIDE HCL 2% DROPS 10 ML BTL LEFT EYE SCH (07:34)
[2021-01-16] MEDS: LATANOPROST 0.005% OPHTH DROPS 2.5 ML BTL BOTH EYES SCH (07:34)
[2021-01-16 08:03] VITALS: BP 113/67; PULSE 63; RESP 18; TEMP 98.1
[2021-01-16 08:31] LABS: Basophils # (A) 0.01 X 10*3/uL (0.00-0.10); Basophils % (A) 0.1 %; Eosinophils # (A) 0.02 X 10*3/uL (0.04-0.35); Eosinophils % (A) 0.2 %; HCT 33.9 % (39.6-50.0); HGB 11.4 g/dL (13.0-17.0); Lymphocytes # (A) 1.61 X 10*3/uL (0.90-5.00); Lymphocytes % (A) 15.7 %; MCH 28.8 pg (27.0-32.0); MCHC 33.6 g/dL (32.0-37.0); MCV 85.6 fL (80.0-97.0); Mean Platelet Volume 9.7 fL (9.5-12.2); Monocytes # (A) 0.92 X 10*3/uL (0.20-1.00); Neutrophils # (A) 7.64 X 10*3/uL (1.80-7.70); Neutrophils % (A) 74.7 %; Platelet Count 165 X 10*3/uL (140-440); RBC 3.96 X 10*6/uL (4.40-5.60); RDW 12.8 % (11.5-14.5); WBC 10.23 X 10*3/uL (4.50-10.00)
[2021-01-16] MEDS ORDERED: SERTRALINE 50 MG TAB PO SCH (09:00)
--- NOTE | 2021-01-16 12:35 | P.PN ---
Progress Note - Text Progress Note Date: 01/16/21 Patient is seen status post left total knee arthroplasty. He states he is doing well. He has no complaints at this point. Incision stable. Homans and Jerardo are both negative. Distal neurovascular exam is intact. Impression: Status post left total knee arthroplasty Plan: Discharge to home today
--- NOTE | 2021-01-16 12:38 | P.DS ---
Providers Date of admission: 01/15/2021 Expected date of discharge: 01/16/21 Attending physician: Juan Carlos Brownlee Consults: 01/15/21 09:23 Consult Physician Routine Consulting Provider: Florinda Go Consult Reason/Comments: Medical management Do you want consulting provider notified?: Yes Primary care physician: [facility] Course: 70-year-old gentleman who underwent left total knee arthroplasty. He tolerated the procedure well. His postoperative course was unremarkable. Procedures: Left total knee arthroplasty Patient Condition at Discharge: Good Plan - Discharge Summary Discharge Rx Participant: No New Discharge Prescriptions: New Sennosides-Docusate Sodium [Senokot-S] 2 each PO HS tab Continue Felodipine ER [Plendil] 5 mg PO HS Atenolol [Tenormin] 25 mg PO HS Ascorbic Acid [Vitamin C] 1,000 mg PO DAILY Bimatoprost [Lumigan .01% Ophth Soln] 1 drop BOTH EYES BID Dorzolamide 2% [Trusopt 2%] 1 drops LEFT EYE BID Aspirin 81 mg PO BID Sertraline [Zoloft] 50 mg PO DAILY Acetaminophen Tab [Tylenol] 1,000 mg PO Q6HR PRN PRN Reason: Pain Discharge Medication List Atenolol [Tenormin] 25 mg PO HS 04/29/14 [History] Felodipine ER [Plendil] 5 mg PO HS 04/29/14 [History] Ascorbic Acid [Vitamin C] 1,000 mg PO DAILY 06/30/17 [History] Bimatoprost [Lumigan .01% Ophth Soln] 1 drop BOTH EYES BID 04/29/18 [History] Dorzolamide 2% [Trusopt 2%] 1 drops LEFT EYE BID 04/29/18 [History] Acetaminophen Tab [Tylenol] 1,000 mg PO Q6HR PRN 01/05/21 [History] Aspirin 81 mg PO BID 01/05/21 [History] Sertraline [Zoloft] 50 mg PO DAILY 01/05/21 [History] Sennosides-Docusate Sodium [Senokot-S] 2 each PO HS tab 01/16/21 [Rx] Follow up Appointment(s)/Referral(s): [facility], [NON-STAFF] - 1 Week Shakir Novak PAC [PHYSICIAN SHIP RIGGER] - 01/31/21 2:10 pm Jose Alcala MD [Primary Care Provider] - 01/23/21 10:00 am Patient Instructions/Handouts: *Surgery [facility] - On-Q Pain Pump Discharge Instruc tions, Precautions after Total Joint Replacement Surgery (DC), Knee Replacement (DC) Activity/Diet/Wound Care/Special Instructions: Hold atenolol, monitor blood pressure at home and if systolic blood pressure greater than 140, resume atenolol Discharge Disposition: HOME WITH HOME HEALTH SERVICES
--- NOTE | 2021-01-16 13:39 | P.PN ---
Subjective Progress Note Date: 01/16/21 HISTORY OF PRESENT ILLNESS 70 years old male with patient of Dr. Alcala with past medical history of hypertension and hypertensive cardiovascular disease, anxiety and de pression, glaucoma comes in for an elective left knee arthroplasty. Patient assessed postoperatively and is doing well. It is controlled on pain pump. Patient denies any chest pain, shortness of breath, fever, chills. Vitals evaluated patient and 97.6 pulse 51 blood pressure 118/73, oxygen saturation 94%. No labs are available to assess. Patient does not use a cane or walker. Patient is very active and easily more than 4 MET's. He denies any cardiovascular events in the past. Denies any history of pulmonary embolism. Patient denies any dizziness, nausea, change in bowel habits. 01/16: A Chin states that he has walked with physical therapy. He states he has a little bit sore in the left knee but pain is controlled. He is using incentive spirometry. He denies any chest pain or shortness of breath. He has been afebrile, heart rate 63, blood pressure 113/67, pulse ox 98% on room air. WBC 10.2, hemoglobin 11.4, platelet count 165. Patient has been instructed to hold atenolol at home and monitor his blood pressure if systolic blood pressures greater than 140, resume atenolol. Medication reconciliation has been reviewed. Patient is scheduled for discharge home today with home care. REVIEW OF SYSTEMS Constitutional: No fever, no chills, no night sweats. No weight change. No weakness, fatigue or lethargy. No daytime sleepiness. EENT: No headache. No blurred vision or double vision, no loss of vision. No loss of Hearing, no ringing in the ears, no dizziness. No nasal drainage or congestion. No epistaxis. No sore throat. Lungs: No shortness of breath, cough, no sputum production. No wheezing. Cardiovascular: No chest pain, no lower extremity edema. No palpitations. No paroxysmal nocturnal dyspnea. No orthopnea. No lightheadedness or dizziness. No syncopal episodes. Abdominal: No abdominal pain. No nausea, vomiting. No diarrhea. No constipation. No bloody or tarry stools.. No loss of appetite. Genitourinary: No dysuria, increased frequency, urgency. No urinary retention. Musculoskeletal: No myalgias. No muscle weakness, no gait dysfunction, no frequent falls. No back pain. No neck pain. Mild discomfort to the left knee. Integumentary: No wounds, no lesions. No rash or pruritus. No unusual bruising. No change in hair or nails. Neurologic: No aphasia. No facial droop. No change in mentation. No head injury. No headache. No paralysis. No paresthesia. Psychiatric: No depression. No anxiety. No mood swings. Endocrine: No abnormal blood sugars. No weight change. No excessive sweating or thirst. No cold intolerance. PHYSICAL EXAMINATION Gen: This is a 70-year-old male. He is resting in bed and appears to be HEENT: Head is atraumatic, normocephalic. Pupils equal, round. Sclerae is anicteric. NECK: Supple. No JVD. No lymphadenopathy. No thyromegaly. LUNGS: Clear to auscultation. No wheezes or rhonchi. No intercostal retractions. HEART: Regular rate and rhythm. No murmur. ABDOMEN: Soft. Bowel sounds are present. No masses. No tenderness. EXTREMITIES: No pedal edema. No calf tenderness. NEUROLOGICAL: Patient is awake, alert and oriented x3. Cranial nerves 2 through 12 are grossly intact. ASSESSMENT AND PLAN #1 postoperative day 1 left knee arthroplasty pain controlled per primary team. Continue incentive spirometry for pulmonary prophylaxis. Aspirin 81 mg twice a day for DVT prophylaxis #2. Sinus bradycardia hold atenolol continue Plendil 5 mg daily at bedtime. #3 hypertension. Continue felodipine 5 mg daily at bedtime hold atenolol. Hold blood pressure medication with systolic blood pressure less than 120 #4 DVT prophylaxis with aspirin 81 twice a day #5 Glaucoma continue dorzolamide 2% one drop left eye twice a day #6 DVT prophylaxis full code DISCHARGE PLAN Home with [facility]. Impression and plan of care have been directed as dictated by the signing physic ian. Jacqui Trimble nurse practitioner acting as scribe for signing physician. Objective - Vital Signs Vital signs: Vital Signs Temp 98.1 F 01/16/21 08:00 Pulse 63 01/16/21 08:00 Resp 18 01/16/21 08:00 BP 113/67 01/16/21 08:00 Pulse Ox 98 01/16/21 08:00 Intake & Output 01/15/21 01/16/21 01/16/21 18:59 06:59 18:59 Intake Total 1721 150 Output Total 45 Balance 1676 150 Weight 109.8 kg Intake: IV 1401 Oral 320 150 Output: Estimated Blood Loss 45 Other: Voiding Method Toilet # Voids 1 1 - Labs CBC & Chem 7: 01/16/21 05:18
== END 2021-01-16 14:18 | disposition home health service (06) ==
LOC: OR 05:45 → 4SSUR 10:01 → OR 01-16 14:18
PROVIDERS: ATTEND Orthopaedic Surgery
DX: M17.12 Unilateral primary osteoarthritis, left knee (principal); I11.9 Hypertensive heart disease without heart failure; Z79.1 Long term (current) use of non-steroidal anti-inflammatories (NSAID); Z79.899 Other long term (current) drug therapy; Z98.890 Other specified postprocedural states; R00.1 Bradycardia, unspecified; Z87.891 Personal history of nicotine dependence; F41.9 Anxiety disorder, unspecified; F32.9 Major depressive disorder, single episode, unspecified; G47.30 Sleep apnea, unspecified; H40.9 Unspecified glaucoma; Z99.89 Dependence on other enabling machines and devices; Z96.642 Presence of left artificial hip joint; Z98.42 Cataract extraction status, left eye; Z98.41 Cataract extraction status, right eye; Z96.1 Presence of intraocular lens; Z79.82 Long term (current) use of aspirin
CPT/HCPCS: 97116; 97110; 97161; 64448; 76942; 85025; 88300; 73560; 27447; C1776; C1713; J2250; J1100; J0690 ×2; J2405; J2001; J3010; J1650 ×2; J2704; J2795

== ENCOUNTER 2021-06-11 08:57 | Day surgery (SDC) | payer MEDICARE, OTHER ==
[2021-06-08 08:14] VITALS: BMI 33.0
--- NOTE | 2021-06-10 13:04 | HP ---
HISTORY AND PHYSICAL HISTORY: Nate Kaiser is a 71-year-old gentleman seen with persistent left knee adhesions with history of previous total knee arthroplasty. After treatment options discussed, he elected to proceed with manipulation under anesthesia left knee with steroid injection. Consent was obtained. PAST MEDICAL HISTORY: Hypertension. SURGICAL HISTORY: Left knee arthroscopy, left total knee arthroplasty. MEDICATIONS: Tenormin, aspirin. ALLERGIES: None. SOCIAL HISTORY: Denies tobacco use. PHYSICAL EXAMINATION: Evaluation of the left knee reveals well-healed anterior incisions. Range of motion. -7 to 110. He has some weakness with quadriceps strength. ligaments are stable. Hip rotation is without pain. His distal neurovascular exam is intact. RADIOGRAPHS: Left knee radiographs reveal a stable appearing total knee arthroplasty. IMPRESSION: 1. Left knee adhesions. 2. History of left total knee arthroplasty. 3. Hypertension. PLAN: Manipulation under anesthesia left knee with steroid injection. MMODL / IJN: [id number] /
[~2021-06-11 08:57] MED LIST changes: -ACETAMINOPHEN TAB 500 MG TAB PO PRN; -DEXAMETHASONE SOD PHOSPHATE 4 MG/ML 1 ML VIAL IV ONE; +LACTATED RINGERS 1,000 ML IV SCH; -LIDOCAINE 1% (10MG/ML) FOR IV START INTRADERMA PRN; -MELOXICAM 7.5 MG TAB PO PRN; -ONDANSETRON 4 MG/2 ML VIAL IVP ONE; +Pre Op ABX Message 1 EACH MISC MISCELLANE ONE; -ROPIVACAINE/EPI/CLONIDINE/KET 50 ML SYRINGE MISCELLANE PRN; -TRANEXAMIC ACID 1,000 MG in SODIUM CHLORIDE 0.9% 100 ML IVPB PRN
[2021-06-11 09:21] VITALS: TEMP 97.1
[2021-06-11] MEDS ORDERED: fentaNYL (PF) 50 MCG/ML 2 ML AMP ONE (09:42)
[2021-06-11] MEDS ORDERED: PROPOFOL 10 MG/ML 20 ML VIAL IV ONE (09:42)
[2021-06-11] MEDS ORDERED: LIDOCAINE 1% INJ 10MG/ML (20 ML MDV) ONE (09:42)
[2021-06-11] MEDS ORDERED: methylPREDNISolone ACETATE 80 MG/ML 1 ML VIAL IM ONE (09:52)
--- NOTE | 2021-06-11 09:57 | P.OP ---
Date of Procedure: 06/11/21 Preoperative Diagnosis: Left knee adhesions Postoperative Diagnosis: Left knee adhesions Procedure(s) Performed: Manipulation under anesthesia left knee with steroid injection Anesthesia: MAC Surgeon: Juan Carlos Brownlee Estimated Blood Loss (ml): 0 Pathology: none sent Condition: stable Disposition: PACU Indications for Procedure: 71-year-old gentleman seen with persistent left knee adhesions with history of previous total knee arthroplasty. After treatment options were discussed, he elected to proceed with manipulation under anesthesia left knee with steroid injection. Operative Findings: see description of procedure Description of Procedure: Patient was taken to monitored anesthesia area. He received preoperative IV antibiotics. He underwent IV sedation by the department of anesthesia. Once sufficient anesthesia was noted I performed a manipulation of the left knee achieving 140 of flexion and 2/3 shy of full extension. The superior lateral aspect of the knee was now prepped and draped in the normal sterile orthopedic fashion. I injected a solution of 1 mL Depo-Medrol and 3 mL quarter percent plain Marcaine intra-articular. I guided the knee through range of motion. I applied a sterile Band-Aid over the injection site. The patient was now awakened having tolerated procedure well.
[2021-06-11 10:11] VITALS: RESP 16
[2021-06-11] MEDS ORDERED: KETOROLAC 15 MG/ML 1 ML VIAL ONE (10:14)
[2021-06-11] MEDS ORDERED: KETOROLAC 15 MG/ML 1 ML VIAL IVP ONE (10:18)
[2021-06-11 11:09] VITALS: BP 111/68; PULSE 54
== END 2021-06-11 11:30 | disposition home or self-care (01) ==
LOC: OR 08:57
PROVIDERS: ATTEND Orthopaedic Surgery
DX: M23.8X2 Other internal derangements of left knee (principal); I10 Essential (primary) hypertension; G47.33 Obstructive sleep apnea (adult) (pediatric); Z87.891 Personal history of nicotine dependence; F32.9 Major depressive disorder, single episode, unspecified; Z96.652 Presence of left artificial knee joint; Z98.890 Other specified postprocedural states; Z79.82 Long term (current) use of aspirin; Z79.899 Other long term (current) drug therapy
CPT/HCPCS: 27570; J1040; J2001; J3010; J1885; J2704; J1170

== ENCOUNTER → 2021-08-16 | Outpatient (CLI) | payer MEDICARE, OTHER ==
[2021-08-17 04:51] LABS: ALT 21 U/L (10-49); AST 20 U/L (14-35)
== END | disposition home or self-care (01) ==
LOC: LABWHC1 16:15
PROVIDERS: ATTEND Podiatrist Foot & Ankle Surgery
DX: K74.60 Unspecified cirrhosis of liver (principal)
CPT/HCPCS: 36415; 84450; 84460

== ENCOUNTER → 2021-10-10 | Outpatient (CLI) | payer MEDICARE, OTHER ==
[2021-10-10 16:23] LABS: ALT 26 U/L (10-49); AST 24 U/L (14-35)
== END | disposition home or self-care (01) ==
LOC: LABWHC1 09:46
PROVIDERS: ATTEND Podiatrist Foot & Ankle Surgery
DX: U07.1 COVID-19 (principal); K74.60 Unspecified cirrhosis of liver
CPT/HCPCS: 84450; 84460; 36415; U0003; C9803

== ENCOUNTER → 2024-09-03 | Outpatient (CLI) | payer MEDICARE, OTHER ==
--- NOTE | 2024-09-09 19:23 | P.PCN ---
Date of Procedure: 09/03/24 Operative Findings: Home sleep study report Date of service is 09/03/2024 Pertinent history 74-year-old male patient who is known to have obstructive sleep apnea. Based on the previous home sleep study back in 2018, the patient was noted to have mild CINDY with an AHI of 11. During his last evaluation, the patient stated that he had lost some weight and he was not using the machine. Based on that, the patient was given a follow-up home sleep study to reevaluate the presence and severity of sleep apnea and decide on treatment options accordingly. Comorbidities include glaucoma and hypertension. Physical findings The patient has a weight of 230 pounds with a BMI is 32.1 Technical description The [employer] Ap[employer] system was used to complete his home sleep study. This is a type III home sleep study evaluation. The total recording duration was 9 hours and 34 minutes. The recording started at 10:41 PM and recording ended at 8:15 AM. There was a total of 9 hours and 22 minutes of flow monitoring and oxygen saturation monitoring Results The respiratory evaluation showed a total of 13 obstructive apneas and 62 obstructive hypopneas. The resulting apnea-hypopnea index was 8 consistent with mild obstructive sleep apnea Oxygenation analysis The patient has a baseline pulse ox of 97% room air oxygen. Average pulse ox was 92%. Minimum pulse ox was 83% during sleep. The patient spent approximately 8 minutes of the sleep time below pulse ox of 89%. Cardiac summary Average heart rate of 59 with a minimum heart rate of 40 and a maximal heart of 84 Assessment Mild obstructive sleep apnea with an AHI of 8 without any significant nocturnal oxygen desaturation. Noted the patient's disease has remained mild in severity compared to the previous home sleep study that was done in 2018 Plan The patient will be informed that his disease severity is mild. He is not using his CPAP machine and currently he seems to be asymptomatic. This is a reflection of his mild disease severity. Based on all this, I think is reasonable to hold off on treatment as long as the patient is asymptomatic. Obviously, CPAP therapy can be resumed should the patient develop any hypersomnia or sleepiness with sleep fragmentation and/or impaired sleep quality in the future.
== END ==
LOC: 3 N SLEEP 10:48
PROVIDERS: ATTEND Internal Medicine Critical Care Medicine
DX: G47.33 Obstructive sleep apnea (adult) (pediatric) (principal); G47.36 Sleep related hypoventilation in conditions classified elsewhere; I10 Essential (primary) hypertension; H40.9 Unspecified glaucoma; Z79.899 Other long term (current) drug therapy

== ENCOUNTER 2025-02-18 11:12 | Day surgery (SDC) | payer MEDICARE, OTHER ==
[2025-02-17 09:36] VITALS: BMI 32.1
[2025-02-18] MEDS: IV FLUID CONTINUATION 1,000 ML IV ONE (11:42)
[2025-02-18 11:49] VITALS: TEMP 97.7
[2025-02-18] MEDS: LACTATED RINGERS 1,000 ML IV SCH (11:52)
[2025-02-18] MEDS ORDERED: PROPOFOL 10 MG/ML 20 ML VIAL IV ONE (12:16)
[2025-02-18] MEDS ORDERED: LIDOCAINE 1% INJ 10MG/ML (20 ML MDV) ONE (12:16)
--- NOTE | 2025-02-18 12:37 | P.PCN ---
Date of Procedure: 02/18/25 Procedure(s) Performed: BRIEF HISTORY: Patient is a 74-year-old pleasant white male scheduled for an elective colonoscopy as a part of screening for colon cancer/positive Cologuard PROCEDURE PERFORMED: Colonoscopy with snare polypectomy. PREOPERATIVE DIAGNOSIS: Screening for colon cancer/positive Cologuard. IV sedation per Anesthesia. PROCEDURE: After informed consent was obtained, the patient, was brought into the endoscopy unit. IV sedation was administered by Anesthesia under continuous monitoring. Digital rectal examination was normal. Initially the Olympus CF-160 flexible video colonoscope was then inserted in the rectum, gradually advanced into the cecum without any difficulty. Careful examination was performed as the scope was gradually being withdrawn. Ileocecal valve and the appendiceal orifice were visualized and appeared normal. Prep was excellent. Mucosa of the cecum, ascending colon, transverse colon, normal. The transverse colon there was a 1 cm linear polyp that was removed by cold snare polypectomy. In the distal sigmoid colon at 30 cm from anal verge there was a 3 cm thick pedunculated polyp that was removed by snare polypectomy. Rest of the descending colon, sigmoid colon, and rectum appeared normal. Retroflexion was performed in the rectum and no lesions were seen. The patient tolerated the procedure well. IMPRESSION: 3 cm thick pedunculated distal sigmoid colon polyp status post polypectomy 1 cm linear transverse colon polyp status post snare polypectomy RECOMMENDATIONS: Findings of this examination were discussed with the patient as well as the family. He was advised to follow-up with the biopsy results. If the biopsy reveals adenoma he can have repeat colonoscopy in 3 years .
[2025-02-18 12:56] VITALS: BP 128/85; PULSE 62; RESP 16
== END 2025-02-18 13:13 | disposition home or self-care (01) ==
LOC: ORWHC2ENDO 11:12
PROVIDERS: ATTEND Internal Medicine Gastroenterology
DX: Z12.11 Encounter for screening for malignant neoplasm of colon (principal); D12.5 Benign neoplasm of sigmoid colon; K63.5 Polyp of colon; I10 Essential (primary) hypertension; Z79.82 Long term (current) use of aspirin; Z79.899 Other long term (current) drug therapy
CPT/HCPCS: 45385; 88305; J2003; J2704